=== PATIENT | male | born 2000 | race Caucasian/White ===

== ENCOUNTER 2019-07-04 17:14 | Emergency (ER) | payer OTHER ==
[~2019-07-04] VITALS: Ht 180.3 cm; Wt 61.2 kg
[2019-07-04 17:15] VITALS: BP_SYST 141
--- NOTE | 2019-07-04 17:20 | NUR ---
Patient triaged and placed in waiting room. VSS and patient appears in no acute distress at this time. Accompanied by SELF, awaiting available bed, and MD notified of need for MSE.
--- NOTE | 2019-07-04 17:55 | NUR ---
BROUGHT BACK TO BED #4 AND REPORT GIVEN TO MEKA
--- NOTE | 2019-07-04 18:21 | NUR ---
Pt has 1cm puncture laceration to left palm of hand after accidently cut self while opening a package. No active bleeding at this time.
[2019-07-04] MEDS ORDERED: DIPH-TET-PERTUS Vaccine 0.5 ML VIAL (ADACEL) I.M. ONE (18:30)
[2019-07-04] MEDS ORDERED: BACITRACIN 1 GM OINT TP ONE (18:30)
[2019-07-04] MEDS ORDERED: IBUPROFEN 600 MG TABLET PO ONE (18:30)
[2019-07-04] MEDS ORDERED: LIDOCAINE 2%, 20 ML MDV INJ ONE (18:30)
--- NOTE | 2019-07-04 19:08 | NUR ---
Care endorsed to CRAIG Gonzalez
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
--- NOTE | 2019-07-04 20:00 | NUR ---
MADELYN THREADER IN WITH PT SUTURING LACERATION.
[2019-07-04 20:15] VITALS: BP_SYST 141
--- NOTE | 2019-07-04 20:15 | NUR ---
Dajuan palma in [facility] - 07/04/19 at 2039 by CESIACCUDSymone MADELYN PATIENT FINANCIAL SPECIALIST IN WITH PT SUTURING LACERATION.
--- NOTE | 2019-07-04 20:15 | NUR ---
Patient given written and verbal discharge instructions and verbalizes understanding. INDER Lacey TRANSPORTER DRIVER discussed with patient the results and treatment provided. Patient in stable condition. ID arm band removed. Rx of ibuprofen and bacitracin given. Patient educated on pain management and to follow up with PMD. Pain Scale . Opportunity for questions provided and answered. Medication side effect fact sheet provided.
--- NOTE | 2019-07-04 20:15 | NUR ---
MADELYN PERSONAL LINES UNDERWRITER IN WITH PT SUTURING LACERATION.
== END 2019-07-04 20:15 | disposition home or self-care (01) ==
LOC: SED 17:14
DX: S61.412A Laceration without foreign body of left hand, initial encounter (principal); W26.0XXA Contact with knife, initial encounter; Y93.89 Activity, other specified; Y92.89 Other specified places as the place of occurrence of the external cause; Y99.8 Other external cause status
CPT/HCPCS: 12001; 90471; 90715; 99283; J2001

== ENCOUNTER 2019-07-11 16:07 | Emergency (ER) | payer OTHER ==
[~2019-07-11] VITALS: Ht 180.3 cm; Wt 61.2 kg
[2019-07-11] MEDS ORDERED: [UNRECOGNIZED DRUG - CODE] TP (16:26)
[2019-07-11] MEDS ORDERED: IBUP800T54 PO (16:26)
[2019-07-11 16:27] VITALS: BP_SYST 111
--- NOTE | 2019-07-11 16:31 | NUR ---
PATIENT TO WAITING AREA, STABLE; UNCHANGED
--- NOTE | 2019-07-11 19:00 | NUR ---
Patient to [facility] for evaluation. Side rails up.
--- NOTE | 2019-07-11 19:05 | NUR ---
Jimenez Saucedo WIRE WINDER bedside for pt eval
--- NOTE | 2019-07-11 19:10 | NUR ---
Pt BIB family to ED seeking evaluation of acute, constant, need for suture removal to the left hand s/p sutures placed 7 days ago s/p cutting his hand with a box turner. Denies any symptoms. Denies any pain, motor or sensory deficits, paresthesias, redness, warmth, ecchymosis, or other symptoms. No other complaints noted Pt in overall stable condition.
[2019-07-11 20:12] VITALS: BP_SYST 112
--- NOTE | 2019-07-11 20:12 | NUR ---
Patient given written and verbal discharge instructions and verbalizes understanding. ER APPLICATIONS PROGRAMMER Lewis discussed with patient the care provided. Patient in stable condition. ID arm band removed. No Rx given. Patient educated on pain management and to follow up with PMD.Pain Scale 0/10. Opportunity for questions provided and answered.
== END 2019-07-11 20:12 | disposition home or self-care (01) ==
LOC: SED 16:07
DX: S61.412D Laceration without foreign body of left hand, subsequent encounter (principal); X58.XXXD Exposure to other specified factors, subsequent encounter
CPT/HCPCS: 99283